=== PATIENT | male | born 1940 ===

== ENCOUNTER 2017-10-01 16:54 | Emergency (ER) | payer OTHER ==
[2017-10-01 17:09] VITALS: BP 141/69; PULSE 67; TEMP 98.7; BMI 28.6
[2017-10-01] MEDS ORDERED: ASPIRIN 81 MG CHEWABLE TABLETS PO ONE (17:19)
[2017-10-01 17:53] LABS: BASO % 1.2 % (0-2.0); EOS % 3.5 % (0-4.5); HEMATOCRIT 44.4 % (35.4-49); HEMOGLOBIN 14.4 GM/dL (11.7-16.9); LYMPH % 32.8 % (8-40); MCH 28.4 pg (25.7-33.7); MCHC 32.4 g/dl (32.0-35.9); MEAN CELL VOLUME 87.6 fl (80-96); MEAN PLT VOLUME 7.7 fl (7.5-11.1); NEUT % 53.5 % (42.8-82.8); PLATELET COUNT 217 K/MM3 (134-434); RBC 5.08 M/mm3 (4.00-5.60); RDW 14.2 % (11.9-15.9); WHITE BLOOD COUNT 5.7 K/mm3 (4.0-10.0)
--- NOTE | 2017-10-01 17:54 | PDOC ---
History of Present Illness - General History Source: Patient, Family Exam Limitations: No Limitations - History of Present Illness Initial Comments: 10/01/17 17:57 The patient is a 77M with no PMH (does not follow up with a doctor) who presents to the ER with 1 week of atraumatic chest pain. The patient states that for 1 week he has had constant, crampy R anterior/inferior chest pain, that does not radiate and is not exacerbated or alleviated by anything. He states that today, he was walking for 10-15 minutes in the sun and the pain worsened. He has never had pain like this before. He denies fever, chills, nausea, vomiting, numbness, tingling, and weakness. <Sunny Dominguez - Last Filed: 10/01/17 18:48> <Skylar Murphy - Last Filed: 10/01/17 19:16> - General Chief Complaint: Chest Pain Stated Complaint: CHEST PAIN Time Seen by Provider: 10/01/17 17:38 Past History - Past Medical History COPD: No HTN: Yes - Surgical History Abdominal Surgery: Yes (colon resection 2012) - Suicide/Smoking/Psychosocial Hx Smoking History: Current every day smoker Number of Cigarettes Smoked Daily: 20 Information on smoking cessation initiated: No <Sunny Dominguez - Last Filed: 10/01/17 18:48> <Skylar Murphy - Last Filed: 10/01/17 19:16> - Past Medical History Allergies/Adverse Reactions: Allergies Allergy/AdvReac Type Severity Reaction Status Date / Time No Known Allergies Allergy Verified 10/01/17 17:09 Home Medications: Ambulatory Orders Amlodipine Besylate [Norvasc -] 5 mg PO DAILY 10/01/17 Review of Systems - Review of Systems Able to Perform ROS?: Yes Comments:: 10/01/17 18:04 GENERAL/CONSTITUTIONAL: No fever or chills. No weakness. HEAD, EYES, EARS, NOSE AND THROAT: No change in vision. No ear pain or discharge. No sore throat. CARDIOVASCULAR: Positive for chest pain. No palpitations or lightheadedness. RESPIRATORY: No cough, wheezing, shortness of breath, or hemoptysis. GASTROINTESTINAL: No nausea, vomiting, diarrhea, constipation, or abdominal pain. GENITOURINARY: No dysuria, frequency, hematuria, or change in urination. MUSCULOSKELETAL: No joint or muscle swelling or pain. No neck or back pain. SKIN: No rash or lesions. NEUROLOGIC: No headache, numbness, tingling, weakness, loss of consciousness, or change in strength/sensation. ENDOCRINE: No increased thirst. No abnormal weight change. HEMATOLOGIC/LYMPHATIC: No anemia, easy bleeding, or history of blood clots. ALLERGIC/IMMUNOLOGIC: No hives or skin allergy. Is the patient limited Armenian proficient: No <Sunny Dominguez - Last Filed: 10/01/17 18:48> *Physical Exam - Vital Signs Last Vital Signs Temp Pulse Resp BP Pulse Ox 98.7 F 67 18 141/69 99 10/01/17 16:59 10/01/17 16:59 10/01/17 16:59 10/01/17 16:59 10/01/17 16:59 - Physical Exam Comments: 10/01/17 18:04 GENERAL: Well developed, well nourished. Awake and alert. No acute distress. HEENT: Normocephalic, atraumatic. Hearing grossly normal. Moist mucous membranes. PERRLA, EOMI. No conjunctival pallor. Sclera are non-icteric. NECK: Supple. Full ROM. No JVD. CARDIOVASCULAR: Regular rate and rhythm. No murmurs, rubs, or gallops. PULMONARY: No evidence of respiratory distress. Lungs clear to auscultation bilaterally. No wheezing, rales or rhonchi. ABDOMINAL: Soft. Non-tender. Non-distended. No rebound or guarding. Negative Dawson's sign. GENITOURINARY: No CVA tenderness bilaterally. MUSCULOSKELETAL: Normal range of motion at all joints. No bony deformities or tenderness. EXTREMITIES: No cyanosis. No clubbing. No edema. No calf tenderness or swelling. Chronic L LE swelling, unchanged per pt. SKIN: Warm and dry. Normal capillary refill. No rashes. No jaundice. NEUROLOGICAL: Alert, awake, appropriate. Cranial nerves 2-12 intact. Normal speech. PSYCHIATRIC: Cooperative. Good eye contact. Appropriate mood and affect. <Sunny Dominguez - Last Filed: 10/01/17 18:48> - Vital Signs Last Vital Signs Temp Pulse Resp BP Pulse Ox 98.7 F 67 18 141/69 99 10/01/17 16:59 10/01/17 16:59 10/01/17 16:59 10/01/17 16:59 10/01/17 16:59 <Skylar Murphy - Last Filed: 10/01/17 19:16> Procedures - Bedside Ultrasound Bedside Ultrasound: Cardiac Other: views: SX, PSLA, A4, IVC. Remarks: 10/01/17 19:15 findings: RV<LV, normal EF, no pericardial effusion, normal IVC with >50% collapsibility. impression: normal ejection fraction, no pericardial effusion and good RV contraction <Skylar Murphy - Last Filed: 10/01/17 19:16> Heart Score/ECG Review #1 ECG reviewed & interpreted by me at: 17:23 General ECG Interpretation: Sinus Rhythm, Normal Rate, Normal Intervals, No acute ischemic changes Compared to previous ECG there are: Previous ECG unavail 10/01/17 18:06 NSR vent rate 60 UT 120 QRS 90 QTc 397 No STD or SAJI T wave inversions isolated to aVL <Sunny Dominguez - Last Filed: 10/01/17 18:48> ED Treatment Course - LABORATORY CBC & Chemistry Diagram: 10/01/17 17:38 10/01/17 17:38 <Sunny Dominguez - Last Filed: 10/01/17 18:48> - LABORATORY CBC & Chemistry Diagram: 10/01/17 17:38 10/01/17 17:38 - ADDITIONAL ORDERS Additional order review: Laboratory Results 10/01/17 10/01/17 17:38 17:38 Sodium 142 Potassium 4.8 Chloride 109 H Carbon Dioxide 27 Anion Gap 6 L BUN 23 H Creatinine 1.1 Creat Clearance w eGFR > 60 Random Glucose 87 Calcium 8.4 L Magnesium 2.6 H Total Bilirubin 0.3 AST 15 ALT 20 Alkaline Phosphatase 79 Troponin I < 0.02 B-Natriuretic Peptide 114.99 Total Protein 7.7 Albumin 3.9 10/01/17 17:38 RBC 5.08 MCV 87.6 MCHC 32.4 RDW 14.2 MPV 7.7 Neutrophils % 53.5 Lymphocytes % 32.8 Monocytes % 9.0 Eosinophils % 3.5 Basophils % 1.2 - RADIOLOGY Radiology Studies Ordered: Category Date Time Status CHEST PA & LAT [RAD] Stat Radiology 10/01/17 17:19 Taken - Medications Given in the ED: ED Medications Discontinued Medications Generic Name Dose Route Start Last Admin Trade Name Keon PRN Reason Stop Dose Admin Aspirin 162 mg 10/01/17 17:19 10/01/17 18:01 Asa - PO 10/01/17 17:20 162 mg ONCE ONE Administration <Skylar Murphy - Last Filed: 10/01/17 19:16> Medical Decision Making - Medical Decision Making 10/01/17 18:06 The patient is a 77M with no PMH who presents with pleuritic CP, concerning for ACS vs pulmonary pathology (including PE but low likelihood except for h/o smoking). CP worsened with exertion. With h/o smoking, CA cannot be ruled out. EKG not concerning for acute process. Pending labs and imaging. 10/01/17 18:48 CBC, CMP, trop, and BNP WNL. Pending CXR read. 10/01/17 19:03 Pt signed out to Dr. Tarango. <Sunny Dominguez - Last Filed: 10/01/17 18:48>
[2017-10-01] MEDS ORDERED: ASPIRIN 81 MG CHEWABLE TABLETS ONE (17:58)
[2017-10-01 18:08] LABS: ALBUMIN 3.9 g/dl (3.4-5.0); ANION GAP 6 (8-16); BILIRUBIN,TOTAL 0.3 mg/dL (0.2-1.0); BLOOD UREA NITROGEN 23 mg/dL (7-18); CALCIUM 8.4 mg/dL (8.5-10.1); CHLORIDE 109 mmol/L (98-107); CO2 27 mmol/L (21-32); CREATININE 1.1 mg/dL (0.7-1.3); GLUCOSE,RANDOM 87 mg/dL (74-106); MAGNESIUM 2.6 mg/dL (1.8-2.4); POTASSIUM 4.8 mmol/L (3.5-5.1); SGOT/AST 15 U/L (15-37); SGPT/ALT 20 U/L (12-78); SODIUM 142 mmol/L (136-145); TOT PROT 7.7 g/dl (6.4-8.2)
[2017-10-01 18:11] LABS: ALK PHOS 79 U/L (45-117)
--- NOTE | 2017-10-01 18:12 | PDOC ---
Attending Attestation - ED Attending Attestation I have performed the following: I have examined & evaluated the patient, The case was reviewed & discussed with the resident, I agree w/resident's findings & plan - HPI HPI: 10/01/17 18:37 The patient is a 77 year old male, with a significant past medical history of nephrectomy, smoker, who presents to the emergency department with right sided chest pain for approximately 1 week. He reports right sided pleuritic chest pain , non radiating in nature. Per son, present at bedside, the patient was complaining of shortness of breath, worse with exertion earlier today. Patient reports chronic right leg swelling, but denies any diaphoresis or palpitations. 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 He denies any recent fever, chills, cough, headache, or dizziness. He denies any abdominal pain, nausea, vomiting, diarrhea, or constipation. He denies any dysuria, hematuria, frequency, or urgency. He denies any history of cardiac disease or PE. He denies any recent travel or sick contacts. Patient does not follow up with PCP. Allergies: NKDA Past Surgical History: Nephrectomy, colon resection Social History: Current everyday smoker. No ETOH or recreational drug use. - Physicial Exam PE: 10/01/17 18:38 General: Well appearing, awake and alert, NAD. HEENT: NCAT, PERRL, EOMI, clear conjunctiva, anicteric, moist mucus membranes, clear oropharynx, no oral lesions.. Neck: neck supple, FROM, no JVD, LAD or masses Lungs: CTAB, normal and even respirations, no respiratory distress Chest: no chest wall tenderness, no crepitus. Heart: RRR, no murmurs, 2+ peripheral pulses throughout, trace peripheral edema (right>left, chronic) Abdomen: soft, NTND, no peritoneal signs. No [place] sign. No CVAT. Well healed midline incision s/p colon resection. Back: nontender, normal inspection and ROM MSK: trace edema, PEREZ x4, ROM intact. No clubbing or cyanosis. normal bulk and tone. Neuro: alert, oriented appropriately; no focal neurologic deficits. Skin: warm and well perfused, cap refill <2 sec, normal color; no rash - Medical Decision Making 10/01/17 18:38 Documentation prepared by Giomilsy Lynne, acting as medical research tech for Skylar Murphy MD. <Haroon Lynne - Last Filed: 10/01/17 18:37> - Resident Resident Name: Sunny Dominguez - Medical Decision Making 10/01/17 18:10 Eideh 77 YOM with nephrectomy, smoking presenting with pleuritic right sided chest pain, worse with exertion and deep breath. No trauma. No cough or congestion, respiratory distress. Chronic RLE swelling x many years. Continues to smoke, no ETOH use. Has not seen doctor in many years DDx chest pain: ACS, PE, dissection, PUD, esophageal spasm, GERD, gastritis, costochondritis, lung mass, pleural effusion, pneumonia, pleurisy, pericarditis/ myocarditis. electrolyte/metabolic derangements. Cholelithiasis, cholecystitis, pancreatitis, hepatitis. Vital signs reviewed, wnl. no hypoxia, normotensive and normal HR. Plan: CBC, CMP, lipase, ECG, trops/card panel, bnp, CXR, RUQ sono/biliary, POCUS echo. No abdominal sx, no murphys sign or bm changes to suggest emergent abdominal pathology. RUQ sono to r/o stones. Bedside biliary US with gallstones, no evidence of cholecystitis; CBD not visualized. No prior notes or EKG. laboratory results and imaging reviewed, basic labs and lytes wnl, notable for_ heart score 3, low risk with estimated MACE 1.7% at 30 days, due to age and smoking history (active). right sided pleuritic chest pain x 1 week, atypical and nonreproducible, need to r/o intra abdominal cause such as GB and biliary pathology vs pleurisy/PE - POCUS Echo for chest pain/sob - normal EF, no pericardial effusion, RV<LV, normal global TAPSE, no Wilcox's sign, IVC collapsible >50% and normal caliber. reassuring, lower suspicion for PE, but will send D dimer. ECG with NSR at 62 bpm, normal intervals and QTC. Isolated TWI in AVL. no prior EKG. s/o Dr. Weston overnight pending dimer, RUQ sono and ultimate dispo. pt and family preliminarily made aware of findings, impression and plan, agreeable. 10/01/17 18:11 10/01/17 19:16 <Skylar Murphy - Last Filed: 10/01/17 19:22> Heart Score/ECG Review - History History: Slightly suspicious - Electrocardiogram EKG: Normal - Age Age: >/= 65 - Risk Factors Risk Factors Heart Score: Yes Smoking History Based on the list above the patient has:: 1-2 risk factors - Troponin Troponin: </= normal limit - Score Heart Score - Total: 3 - ECG Intrepretation Rhythm: Regular Rhythm - [place]: Normal - ECG Impressions Normal ECG: No Comment:: 10/01/17 18:11 NSR at 62 bpm, normal intervals and QTC. Isolated TWI in AVL. no segment changes or contiguous changes. <Skylar Murphy - Last Filed: 10/01/17 19:22>
--- NOTE | 2017-10-01 19:26 | PDOC ---
*Physical Exam - Vital Signs Last Vital Signs Temp Pulse Resp BP Pulse Ox 98.7 F 67 18 141/69 99 10/01/17 16:59 10/01/17 16:59 10/01/17 16:59 10/01/17 16:59 10/01/17 16:59 ED Treatment Course - LABORATORY CBC & Chemistry Diagram: 10/01/17 17:38 10/01/17 17:38 - ADDITIONAL ORDERS Additional order review: Laboratory Results 10/01/17 10/01/17 17:38 17:38 Sodium 142 Potassium 4.8 Chloride 109 H Carbon Dioxide 27 Anion Gap 6 L BUN 23 H Creatinine 1.1 Creat Clearance w eGFR > 60 Random Glucose 87 Calcium 8.4 L Magnesium 2.6 H Total Bilirubin 0.3 AST 15 ALT 20 Alkaline Phosphatase 79 Troponin I < 0.02 B-Natriuretic Peptide 114.99 Total Protein 7.7 Albumin 3.9 10/01/17 17:38 RBC 5.08 MCV 87.6 MCHC 32.4 RDW 14.2 MPV 7.7 Neutrophils % 53.5 Lymphocytes % 32.8 Monocytes % 9.0 Eosinophils % 3.5 Basophils % 1.2 - Medications Given in the ED: ED Medications Discontinued Medications Generic Name Dose Route Start Last Admin Trade Name Freq PRN Reason Stop Dose Admin Aspirin 162 mg 10/01/17 17:19 10/01/17 18:01 Asa - PO 10/01/17 17:20 162 mg ONCE ONE Administration Medical Decision Making - Medical Decision Making 10/01/17 19:26 Patient signed out by Dr. Dominguez (Resident) under the care of Dr. Murphy (Attending) 77 year old male presents with chest pain. Troponin (-) x1. EKG showed TWI in aVL. Awaiting D-Dimer to r/o PE. Patient resting comfortably. States his pain has resolved since he "relaxed." 10/01/17 20:49 D-Dimer negative. Will discharge home with return precautions and PMD follow- up. I discussed the physical exam findings, ancillary test results and final diagnoses with the patient. I answered all of the patient's questions. The patient was satisfied with the care received and felt comfortable with the discharge plan and treatment plan. The patient will return to the Emergency Department with any new, persistent or worsening symptoms. *DC/Admit/Observation/Transfer Diagnosis at time of Disposition: Chest pain - Discharge Dispostion Disposition: HOME Condition at time of disposition: Good Decision to Admit order: No - Referrals Referrals: Deisy Haq MD [Staff Physician] - - Patient Instructions Printed Discharge Instructions: DI for Atypical Chest Pain Additional Instructions: You were evaluated today for chest pain. All of your labs and imaging showed no concerning findings. We have provided a referral to a primary care physician. Please make an appointment for general evaluation in the next 2-3 days. Please return to the Emergency Department for any new/worsening/concerning symptom. - Post Discharge Activity
--- NOTE | 2017-10-02 14:17 | EKG ---
Test Reason : Blood Pressure : / mmHG Vent. Rate : 062 BPM Atrial Rate : 062 BPM P-R Int : 120 ms QRS Dur : 090 ms QT Int : 392 ms P-R-T Axes : 043 057 074 degrees QTc Int : 397 ms NORMAL SINUS RHYTHM MODERATE VOLTAGE CRITERIA FOR LVH, MAY BE NORMAL VARIANT BORDERLINE ECG NO PREVIOUS ECGS AVAILABLE Confirmed by Alli Parr ([id number]) on 10/02/2017 2:16:56 PM Referred By: Confirmed By:Alli Parr
== END 2017-10-01 21:07 | disposition home or self-care (01) ==
LOC: JER 16:54
DX: R07.89 Other chest pain (principal); I10 Essential (primary) hypertension; Z90.5 Acquired absence of kidney; F17.210 Nicotine dependence, cigarettes, uncomplicated
CPT/HCPCS: 36415; 71046-TC-FY; 80053; 83735; 83880; 84484; 85025; 85379; 93005; 93010; 99283-25